=== PATIENT | male | born 1955 | race Caucasian/White ===

== ENCOUNTER 2021-09-19 19:20 | Emergency (ER) | payer OTHER ==
[~2021-09-19] VITALS: Ht 175.3 cm; Wt 99.0 kg
--- NOTE | 2021-09-19 19:45 | NUR ---
Pt bib for dizziness and HBP since 5pm. Pt AOx4 and able to make needs known. Pt is ambulatory. Pt is shaking a lot but states that hes shaky because he is very cold.
[2021-09-19] MEDS ORDERED: LOSA100T3 PO (19:59)
[2021-09-19] MEDS ORDERED: MECLIZINE HCL 25 MG TABLET PO ONE (20:00)
[2021-09-19] MEDS ORDERED: IV NORMAL SALINE 1000 ML BAG IV ONE (20:00)
--- NOTE | 2021-09-19 20:12 | NUR ---
Pt left for CT head
[2021-09-19] MEDS ORDERED: MECLIZINE HCL 25 MG TABLET ONE (20:19)
[2021-09-19 20:22] LABS: HEMATOCRIT 43.8 % (36.7-47.1); MEAN CORPUSCULAR HEMOGLOBIN 35.6 uug (23.8-33.4); MEAN CORPUSCULAR VOLUME 101.8 fL (73.0-96.2); PLATELET COUNT (AUTO) 163 K/uL (152-348)
[2021-09-19 20:28] LABS: CARBON DIOXIDE 25 mmol/L (21-32); CHLORIDE 100 mmol/L (98-107); CREATININE 0.9 mg/dL (0.6-1.3); GLUCOSE 140 mg/dL (74-106); POTASSIUM 4.1 mmol/L (3.5-5.1); UREA NITROGEN, BLOOD 12 mg/dL (7-18)
[2021-09-19] MEDS ORDERED: VANCOMYCIN 1G/D5W 200 ML PIGGYBACK IV ONE ×4 (20:45→22:30)
[2021-09-19] MEDS ORDERED: IV NS 1000 ML 1,000 ML IV ONE (20:45)
[2021-09-19] MEDS ORDERED: PIPERACILLIN SODIUM/TAZOBACTAM 3.375 G in IV DEXTROSE 5% 50 ML IV ONE (20:45)
[2021-09-19] MEDS ORDERED: PIPERACILLIN/TAZOBACTAM/D5W 50 ML IV ONE (20:53)
[2021-09-19 20:55] LABS: *BILIRUBIN,URIN 1+ (NEGATIVE); *BLOOD, URINE 1+ (NEGATIVE); *CLARITY,URINE CLEAR (CLEAR); *COLOR,URINE YELLOW (YELLOW); *KETONES,URINE NEGATIVE (NEGATIVE); *UROBILINOGEN,URINE 0.2 E.U./dl (NORMAL); LEUKOCYTE ESTERASE ,URINE NEGATIVE (NEGATIVE); NITRITE, URINE NEGATIVE (NEGATIVE); PH,URINE 5.5 (5.0-8.0); UGLUCOSE NEGATIVE (NEGATIVE)
[2021-09-19] MEDS ORDERED: VANCOMYCIN IV 2,000 MG in IV DEXTROSE 5% 500 ML IV ONE (21:00)
[2021-09-19] MEDS ORDERED: VANCOMYCIN IV 0 ML ONE (21:02)
[2021-09-19 21:06] LABS: BACTERIA,URINE NONE SEEN /HPF (NONE SEEN); SQUAMOUS EPITHELIAL CELL,UR FEW /HPF (NONE SEEN); WBC,URINE 0-3 /HPF (0-3)
[2021-09-19 21:07] LABS: MUCUS,URINE MODERATE /LPF (0-FEW)
--- NOTE | 2021-09-19 22:12 | NUR ---
Pt laying comfortably in bed. Denies pain or SOB a this time. No changes in LOC. at bedside.
--- NOTE | 2021-09-19 22:26 | NUR ---
Waiting for auth from [facility] to see if patient can be admitted here.
[2021-09-19 22:47] LABS: BILIRUBIN,DIRECT 0.1 mg/dL (0.0-0.2); BILIRUBIN,TOTAL 0.5 mg/dL (0.2-1.0)
--- NOTE | 2021-09-19 23:30 | NUR ---
Per [facility], pt will be transferred to [facility].
[2021-09-20] MEDS ORDERED: LORAZEPAM 2 MG/1 ML VIAL IV ONE (00:30)
[2021-09-20] MEDS ORDERED: FOLIC ACID 5 MG/ML VIAL IV ONE (00:45)
[2021-09-20] MEDS ORDERED: IV NS 1000 ML 1,000 ML IV ONE (00:45)
[2021-09-20] MEDS ORDERED: MULTIVITAMINS,THERAPEUTIC TABLET PO ONE (00:45)
[2021-09-20] MEDS ORDERED: THIAMINE HCL 200 MG/2 ML VIAL IV ONE (00:45)
[2021-09-20] MEDS ORDERED: LORAZEPAM 2 MG/1 ML VIAL ONE (00:46)
[2021-09-20] MEDS: MAGNESIUM SULFATE/D5W 100 ML IV SCH ×2 (00:50→02:27)
[2021-09-20] MEDS ORDERED: MAGNESIUM SULFATE/D5W 100 ML ONE ×2 (00:55→02:36)
[2021-09-20] MEDS ORDERED: MULTIVIT, IRON, MIN NO. 8, FA TABLET ONE (01:44)
[2021-09-20 01:57] LABS: *AMPHETAMINE, URINE NEGATIVE (NEGATIVE); *CANNABINOID, URINE POSITIVE (NEGATIVE); *COCCAINE, URINE NEGATIVE (NEGATIVE); *OPIATE, URINE NEGATIVE (NEGATIVE); *PHENCYCLIDINE SCREEN,URINE NEGATIVE (NEGATIVE)
--- NOTE | 2021-09-20 02:19 | NUR ---
Spoke to Mayela from [facility]. Still waiting on a bed.
--- NOTE | 2021-09-20 04:52 | NUR ---
Report given to Mark from [facility], pt going to [facility] bed 5.
--- NOTE | 2021-09-20 05:02 | NUR ---
Pt desatting to 85% on RA, placed on 2L NC, satting 97%
--- NOTE | 2021-09-20 05:42 | NUR ---
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
--- NOTE | 2021-09-20 05:51 | NUR ---
Patient Tranfers to outside Facility, [facility] Physician: Dr. Lackey Location: [facility] bed 5
== END 2021-09-20 05:54 | disposition short-term general hospital (02) ==
LOC: ER 19:23
DX: R55 Syncope and collapse (principal); Z20.822 Contact with and (suspected) exposure to COVID-19; E87.2 Acidosis; Z72.89 Other problems related to lifestyle
CPT/HCPCS: 36415 ×2; 70450; 71045; 80048; 80307; 80320; 81001; 82247; 82248; 83605 ×2; 83880; 84484; 85025; 85379; 85730; 87040 ×2; 87086; 87426; 93005; 96365 ×2; 96366; 96375 ×2; 99285; J2060; J2543; J3370; J3411; J3475 ×2; G0480; J3490; J7030; J7060; J8597

== ENCOUNTER 2023-09-12 02:00 | Emergency (ER) | payer MEDICARE, BC ==
[~2023-09-12] VITALS: Ht 170.2 cm; Wt 86.2 kg
[~2023-09-12 02:00] MED LIST: LOSA100T3 PO
[2023-09-12 03:01] LABS: BASOPHILS % (AUTO) 0.8 % (0.0-2.0); EOSINOPHILS # (AUTO) 0.2 K/uL (0.0-0.7); EOSINOPHILS % (AUTO) 4.5 % (0.0-7.0); HEMATOCRIT 43.3 % (36.7-47.1); HEMOGLOBIN 14.9 g/dL (12.5-16.3); LYMPHOCYTES # (AUTO) 1.3 K/uL (0.8-4.8); LYMPHOCYTES % (AUTO) 25.8 % (20.5-51.5); MEAN CORPUSCULAR HGB CONC 34 g/dL (32.5-36.3); MEAN CORPUSCULAR VOLUME 104.6 fL (73.0-96.2); MONOCYTES # (AUTO) 0.4 K/uL (0.1-1.30); NEUTROPHILS # (AUTO) 3.2 K/uL (1.8-8.9); NEUTROPHILS % (AUTO) 61.9 % (38.5-71.5); PLATELET COUNT (AUTO) 132 K/uL (152-348); RED BLOOD CELL COUNT(AUTO) 4.14 MIL/uL (4.06-5.63); RED CELL DISTRIBUTION WIDTH 13.9 % (12.1-16.2); WHITE BLOOD COUNT (AUTO) 5.2 K/uL (3.6-10.2)
[2023-09-12 03:17] LABS: DIFFERENTIAL COMMENT 1
[2023-09-12] MEDS: IV NS 1000 ML 1,000 ML IV ONE (03:26)
[2023-09-12 03:29] LABS: ALANINE AMINOTRANSFERASE 89 U/L (16-63); ALBUMIN 3.8 g/dL (3.4-5.0); ALKALINE PHOSPHATASE 97 U/L (50-136); ASPARTATE AMINOTRANSFERASE 130 U/L (15-37); BILIRUBIN,TOTAL 0.9 mg/dL (0.2-1.0); CARBON DIOXIDE 23 mmol/L (21-32); CHLORIDE 98 mmol/L (98-107); CREATININE 1.4 mg/dL (0.6-1.3); GLUCOSE 128 mg/dL (74-106); NT-PRO BNP 230 pg/mL (0-125); POTASSIUM 4.2 mmol/L (3.5-5.1); SODIUM SERUM 137 mmol/L (136-145); TOTAL PROTEIN, SERUM 8.3 g/dL (6.4-8.2); UREA NITROGEN, BLOOD 22 mg/dL (7-18)
[2023-09-12 03:35] LABS: ETHANOL < 3 MG/DL (0-10)
[2023-09-12 04:08] LABS: *BILIRUBIN,URIN NEGATIVE (NEGATIVE); *BLOOD, URINE 1+ (NEGATIVE); *CLARITY,URINE CLEAR (CLEAR); *COLOR,URINE YELLOW (YELLOW); *KETONES,URINE TRACE (NEGATIVE); *PROTEIN,URINE 2+ (NEGATIVE); *UROBILINOGEN,URINE 0.2 E.U./dl (NORMAL); LEUKOCYTE ESTERASE ,URINE NEGATIVE (NEGATIVE); NITRITE, URINE NEGATIVE (NEGATIVE); PH,URINE 5.5 (5.0-8.0); UGLUCOSE NEGATIVE (NEGATIVE)
[2023-09-12 04:55] VITALS: BP 137/75; TEMP 98.6; O2SAT 99
[2023-09-12 05:24] LABS: BACTERIA,URINE FEW /HPF (NONE SEEN); SQUAMOUS EPITHELIAL CELL,UR NONE SEEN /HPF (NONE SEEN); WBC,URINE NONE SEEN /HPF (0-3)
[2023-09-12 05:43] LABS: *AMPHETAMINE, URINE NEGATIVE (NEGATIVE); *BARBITURATE, URINE NEGATIVE (NEGATIVE); *BENZODIAZEPINE, URINE NEGATIVE (NEGATIVE); *CANNABINOID, URINE NEGATIVE (NEGATIVE); *COCCAINE, URINE NEGATIVE (NEGATIVE); *OPIATE, URINE NEGATIVE (NEGATIVE); *PHENCYCLIDINE SCREEN,URINE NEGATIVE (NEGATIVE)
[2023-09-12 05:48] LABS: FENTANYL, URINE NEGATIVE (NEGATIVE)
== END 2023-09-12 04:56 | disposition left against medical advice (07) ==
LOC: ER 02:08
DX: R55 Syncope and collapse (principal); F17.200 Nicotine dependence, unspecified, uncomplicated; Z98.890 Other specified postprocedural states; Z79.899 Other long term (current) drug therapy
CPT/HCPCS: 80053; 81001; 83880; 85025; 84484; 36415; 71045; 70450; 99284; 96360; 80320; 80307; J7040; A4606; A4663; G0480

== ENCOUNTER 2025-01-26 11:05 | Emergency (ER) | payer BC, MEDICARE | END 2025-01-26 12:14 | disposition home or self-care (01) | LOC: ER 11:05 | DX: R10.9 Unspecified abdominal pain (principal); Z53.21 Procedure and treatment not carried out due to patient leaving prior to being seen by health care provider ==